=== PATIENT | female | born 1980 | race Caucasian/White ===

== ENCOUNTER → 2020-09-24 11:23 | Outpatient (CLI) | payer OTHER, SELFPAY ==
--- NOTE | ~2020-09-24 | MM_ITS ---
EXAMINATION: MM scrn pedro implant BI w jing HISTORY: Screening mammogram TECHNIQUE: Craniocaudal and mediolateral oblique 3-D tomosynthesis images with implant displacement a nd synthetic 2-D images were generated. Craniocaudal and mediolateral oblique views of the breasts wi thout implant displacement were obtained using full field digital mammography. CAD analysis was submi tted and interpreted. COMPARISON: No prior mammogram is available for comparison at this institution. BREAST PARENCHYMAL COMPOSITION: The breasts are heterogeneously dense, which may obscure small masses . FINDINGS: There are bilateral subpectoral saline implants. There is no evidence of suspicious mass, c alcification, or architectural distortion to suggest malignancy in either breast. There has been no s uspicious interval change. IMPRESSION: 1. No mammographic evidence of malignancy. 2. Recommend routine screening mammography in one year. BI-RADS Category 1: Negative Reviewed, dictated and finalized at location A. NSION PROFESSOR
== END ==
PROVIDERS: Visit Provider Obstetrics & Gynecology
DX: Z12.31 Encounter for screening mammogram for malignant neoplasm of breast (principal)
CPT/HCPCS: 77063; 77067

== ENCOUNTER → 2021-09-26 10:24 | Outpatient (CLI) | payer OTHER, SELFPAY ==
--- NOTE | ~2021-09-26 | MM_ITS ---
EXAMINATION: MM scrn pedro implant BI w jing HISTORY: Screening mammogram TECHNIQUE: Craniocaudal and mediolateral oblique 3-D tomosynthesis images with implant displacement a nd synthetic 2-D images were generated. Craniocaudal and mediolateral oblique views of the breasts wi thout implant displacement were obtained using full field digital mammography. CAD analysis was submi tted and interpreted. COMPARISON: 09/24/2020 BREAST PARENCHYMAL COMPOSITION: The breasts are heterogeneously dense, which may obscure small masses . FINDINGS: There is no evidence of suspicious mass, calcification, or architectural distortion to sugg est malignancy in either breast. There has been no suspicious interval change. IMPRESSION: 1. No mammographic evidence of malignancy. 2. Recommend routine screening mammography in one year. BI-RADS Category 1: Negative Reviewed, dictated and finalized at location A.
== END ==
PROVIDERS: PCP Family Medicine; Visit Provider Obstetrics & Gynecology
DX: Z12.31 Encounter for screening mammogram for malignant neoplasm of breast (principal)
CPT/HCPCS: 77063; 77067

== ENCOUNTER 2022-01-22 10:55 | Outpatient (CLI) | payer OTHER, SELFPAY ==
--- NOTE | 2022-01-22 11:14 | ECG_ITS ---
Measurements Intervals Baker Rate: 67 P: 30 DC: 136 QRS: 13 QRSD: 86 T: 34 QT: 392 QTc: 416 Interpretive Statements SINUS RHYTHM WITH SINUS ARRHYTHMIA NORMAL ECG NO PREVIOUS ECG AVAILABLE FOR COMPARISON Electronically Signed On 01-22-2022 15:25:38 FLAT SORTER PROCESSOR by Tye Dorado M.D.
[2022-01-22 11:25] LABS: Hemoglobin 13.5 g/dL (12.0-15.0)
== END 2022-01-22 10:56 | disposition home or self-care (01) ==
LOC: ANHSURGERY 10:58
PROVIDERS: Anesthesiology; PCP Family Medicine; Visit Provider Surgery Plastic and Reconstructive Surgery
DX: Z01.818 Encounter for other preprocedural examination (principal)
CPT/HCPCS: 36415; 85014; 85018; 93005

== ENCOUNTER → 2022-01-24 | Outpatient (CLI) | payer OTHER, SELFPAY ==
[2022-01-24 12:22] LABS: SARS-CoV-2 RNA PCR Negative
== END ==
PROVIDERS: PCP Family Medicine; Visit Provider Surgery Plastic and Reconstructive Surgery
DX: Z01.812 Encounter for preprocedural laboratory examination (principal); Z20.822 Contact with and (suspected) exposure to COVID-19
CPT/HCPCS: C9803; U0003; U0005

== ENCOUNTER 2022-01-27 00:06 | Day surgery (SDC) | payer OTHER, SELFPAY ==
[2022-01-21 09:43] VITALS: BMI 31.3
--- NOTE | 2022-01-21 09:54 | PC.NURSE ---
Report to the Outpatient Waiting Room, entrance under the green pavilion located off [facility], at time 6:30 on date 01/27/22. OR Time: 8:30. - You and your visitor will be asked a series of questions to screen for COVID 19 for your protection. - A mask is required within the hospital. One visitor will be allowed to accompany the patient into the hospital. Patients visitor will be instructed to remain with patient at all times or leave the building. We will allow the visitor to come back to the postoperative area when patient is ready. Preoperative COVID Testing Requirements: COVID TEST 01/24 AT 9:30 No COVID Test needed if: (proof is required; if not received patient will have Rapid Test prior to entry) - Patient has received COVID Vaccine at least 14 days prior to procedure date or - Patient has positive COVID test result within last 90 days of surgery date. COVID Test needed if above criteria is not met If not COVID vaccinated a COVID test must be conducted within 72 hours of surgery and patient is asked to isolate self from time of testing until procedure. You will go to the [facility] for your COVID testing. The [facility] site is located at the corner of [address] [facility]. You will only be called if COVID results are positive and your surgeon may reschedule your elective surgery date. Patients may have clear liquids (water, carbonated beverages, clear teas, apple juice) until 3 hours prior to surgery (5:30) with a maximum of 20 ounces. - No food from midnight until time of surgery Take the following medications with a SIP of water the morning of surgery: NONE Medications to discontinue per physician: N/A Date to take last dose: N/A Please no make-up, nail indonesian, hairspray, perfume, deodorant, or body powder the day of surgery. No jewelry (including any body piercings) or valuables the day of surgery, leave them at home. Please take a shower or bath the night before, or the morning of, surgery with an antibacterial soap. Wear comfortable, loose fitting clothing. - Jewelry must be removed prior to entering the operating room. Rings and piercings that are not removed may be cut off. - The hospital will not accept responsibility for valuables. - Please leave all valuables, including medications, at home the day of surgery. If you are going home after surgery, a licensed party bus driver must drive you home. - NO public transportation without another adult. - We recommend that an adult stay with you for 24 hours following discharge. - We also recommend that you do not drive, make important decision, drink alcoholic beverages, or take any drugs that were not prescribed by your health care provider for at least 24 hours after your discharge time. Follow any additional instructions given to you from your surgeon. Telephone instructions given to ILSA QUIÑONEZ and asked if any additional questions and then verbalized understanding. Patient advised to call surgeon office or pre surgery nurse liaison [phone] if any additional questions.
--- NOTE | 2022-01-26 13:53 | WPDANESEPPF ---
Anes - Initial Pre Proc Eval Procedure: Operation Date: 01/27/22 08:30 Proposed Procedures p Bilateral Breast Implant Exchange Saline To Silicone - Ruddy De Anda MD s Abdominoplasty, Liposuction Abdominal And Flank Areas - Ruddy De Anda MD Date/Time: 01/26/22 13:53 Surgeon: Ruddy De Anda MD Pre Op Diagnosis: Hx of Breast Aug, Abdomen Skin Laxity Patient Data Age: 41 Gender: F Height: 1.7 m Weight: 90.72 kg Allergies Allergy/AdvReac Type Severity Reaction Status Date / Time morphine Allergy Unknown Swelling Verified 01/27/22 06:42 of Lip/Tongue/Throat Home Medications Medication Instructions Recorded Confirmed Type carisoprodol 350 mg tablet 350 mg PO TID PRN #21 tablet 01/12/22 01/21/22 Rx docusate sodium 100 mg capsule 100 mg PO DAILY #14 cap 01/12/22 01/21/22 Rx ondansetron HCl 4 mg tablet 4 mg PO Q8H #21 tablet 01/12/22 01/21/22 Rx oxycodone-acetaminophen 5 mg-325 1 tablet PO Q6H PRN #30 tablet 01/12/22 01/21/22 Rx mg tablet Patient hx anesthesia problems: none Family hx anesthesia problems: none Results Review: All pre-operative results and documents have been reviewed as part of the pre-operative evaluation. [facility] Past Medical History Medical History (Updated 01/26/22 @ 13:53 by Adin Elliott MD) Obesity PONV (postoperative nausea and vomiting) Surgical History Surgical History History of repair of ACL Hx of section Hx of cholecystectomy Hx of hernia repair Hx of hysterectomy Family History Family History Grandparent Hypertension Family history of coronary artery disease Diabetes mellitus DVT (deep venous thrombosis) Other Family history of malignant neoplasm of cervix Social History Social History Smoking status: Unknown if ever smoked Alcohol intake: current Drinks per week: 4 Substance use: never Substance use type: does not use Living arrangements: with family Spiritual care concerns: No Anes - Eval Final PreProcedure Day of Procedure 01/26/22 13:53 Patient weight: obese Heart: regular rate and rhythm Lungs: clear to auscultation and normal air movement Airway: Mallampati scale class II Neurological: alert and oriented Last oral intake: >/= 8 hours ASA classification: II Emergent: no Anesthetic plan: proceed Anesthesia type and monitoring: general LMA Results Review: All pre-operative results and documents have been reviewed as part of the pre-operative evaluation. Informed Consent: The patient's anesthetic plan and its attendant risks and benefits were discussed with the patient/family/POA. Questions were solicited and answers provided to the satisfaction of the patient/family/POA.
[2022-01-27] VITALS (10 sets, daily range): BP systolic 104–131; BP diastolic 66–92; PULSE 71–94; RESP 12–19; TEMP 36–36.6; O2SAT 94–100; BMI 32.3
[2022-01-27] MEDS: SCOPOLAMINE 1.5 MG PATCH TRANSDERM (07:02)
--- NOTE | 2022-01-27 07:05 | WPDHPUPDATE1 ---
History and Physical Update Update Date/Time: 01/27/22 07:05 History and Physical has been reviewed, including an updated exam of the patient. There are NO changes in the patient's condition. Risks, benefits, and alternatives have been discussed and questions answered. Patient agrees to proceed with procedure.
[2022-01-27] MEDS: LACTATED RINGERS 1,000 ML 30 ML IV CONT ×2 (07:24→13:24)
--- NOTE | 2022-01-27 07:24 | SUR.PREOP ---
0710; RN IN ROOM WHILE DR MCGOWAN MARKING PT. SPOUSE IN ROOM ALSO
[2022-01-27 07:28] LABS: Urine Cotinine NEGATIVE
[2022-01-27] MEDS: LACTATED RINGERS IRRIG 1,000 ML, LIDOCAINE HCL 1% LOCAL INJ 50 ML, EPINEPHrine HCL INJ ... INFILTRATE (08:30)
[2022-01-27] MEDS: ceFAZolin 2 GM/D5W 50 ML 2 GM/50 ML BAG IVPB (08:30)
[2022-01-27] MEDS: BUPIVACAINE/EPINEPHRINE 0.25% 10 ML VIAL 60 ML INFILTRATE (08:30)
[2022-01-27] MEDS: TRANEXAMIC ACID 1,000MG/ISO100 1,000 MG/100 ML BAG 200 MG IVPB (08:40)
--- NOTE | 2022-01-27 12:58 | W.PM.PROC2 ---
Procedure Note - Detailed Date of Procedure 01/27/22 Pre-op Diagnosis Hx of Breast Aug, Abdomen Skin Laxity Post-op Diagnosis Same Procedure Performed 1. Bilateral breast implant exchange. 2. Progressive tension abdominoplasty with suction lipectomy Surgeon Ruddy De Anda MD Anesthesia General Findings Previous implants: Saline, smooth, 500cc est fill volume (based on volume removed) 570-590cc. Replacement implants: Bilateral Natmelvin SoftTouch implants 605cc Right: REF# [id number] SN [id number] Left: REF# [id number] Tissue removed: 2,375 cc Lipoaspirate: 2,500 cc Description of Procedure They are here today for the above. Previously and again today the risks, benefits, alternatives were discussed in extensive detail. I wanted them to be very realistic about the risks involved as well as expectations. We discussed aftercare and what to monitor for. She would like to change to IMF incision. I was very upfront about the risks of wound breakdown leading to loss of skin, open wounds, and need for additional procedures with permanent abdominal deformity. We discussed DVT/PE risks and management. Made sure answered all of their questions to their satisfaction today and consent was obtained. They were marked in the preoperative holding area with their verification. The patient was taken to the operating room placed supine on the operating table. Anesthesia was provided by anesthesiology. A Hernandez catheter was started. They were prepped and draped in a standard sterile fashion in a 360 degree prep. A surgical time-out was taken. Breast 1% lidocaine and 0.25% Marcaine with epinephrine was used to provide a field block. A 15 blade was used to make an incision along the IMF. Dissection was continued down until the implants were identified. These were saline smooth implants. Sizes as above. I used 18 gauge needle on suction and completed suction of each of the implants for the estimates as above. These were overfilled implants. Implants removed. Irrigated with 3 L of saline solution on TUR tubing. She had some lateral migration and I completed popcorn capsulorrhaphy laterally. I then copiously irrigated with triple antibiotic Betadine solution. During the procedure we had Tegaderm nipple Gonzalez in place. A steak Adams funnel and the implant was introduced into the pocket. This was closed using 2-0 Vicryl followed by 3-0 Monocryl in a running subcuticular 4-0 Monocryl and finally tissue glue. Abdomen A thorough abdominal examination was completed. Stab incisions were made and tumescent solution infiltrated. Suction lipectomy was completed with a 5mm basket cannula based on S.A.F.E. technique. During the procedure we did turn the patient in the lateral decubitus position to optimize contour. This was based on preoperative planning, intraoperative observations and rolling pinch which were in full agreement. I placed the patient in a flexed position to verify the upper and lower markings would reach. I then placed supine. A 10 blade was used to make the upper incision. I continued dissection down to the level of fascia. Elevated just what was necessary for repair of the diastasis. I then again flexed the bed to verify the upper skin flap would reach the lower markings without tension. Once verified I placed her supine once again and a 10 blade used to make the lower incision. I elevated up to level the umbilicus and left the umbilicus intact on a well-vascularized stalk. The intervening tissue was removed. A 2 mm blunt cannula with 0.5% bupivicaine was injected deep to the fascia bilaterally. I plicated the diastasis recti using 0 PDO stratafix barbed suture. This was in 2 separate layers using 2 separate sutures as well. I repaired around the umbilicus leaving plenty of room for well-vascularized stalk of the umbilicus with 2-0 PDS. I also repaired lateral to the rectus using two layers of 0 PDO strata
[2022-01-27] MEDS: ONDANSETRON INJ 4 MG/2 ML VIAL IV PUSH ×2 (13:42→15:06)
[2022-01-27] MEDS: HALOPERIDOL LACTATE 5 MG/ML VIAL 1 MG IV PUSH (13:55)
[2022-01-27] MEDS: diphenhydrAMINE HCl INJ 50 MG/ML VIAL 25 MG IV PUSH (14:25)
[2022-01-27] MEDS: LACTATED RINGERS 1,000 ML 125 ML IV CONT ×2 (15:06→22:52)
--- NOTE | 2022-01-27 15:19 | OBPPTRN ---
1447 Patient transferred to post room #280 via bed. Support person present. Oriented to unit, room, information board, rooming in, admission packet and security measures. Patient verbalizes understanding.
[2022-01-27] MEDS: carisoprodoL (*CRX) 350 MG TABLET PO (18:34)
[2022-01-27] MEDS: ENOXAPARIN 40 MG/0.4 ML SYRINGE SUB-Q (20:58)
[2022-01-27] MEDS: DOCUSATE SODIUM 100 MG CAPSULE PO (20:59)
[2022-01-27] MEDS: oxyCODONE/ACETAMINOPHEN (*CRX) 5-325 MG TABLET PO (21:00)
[2022-01-28] MEDS: carisoprodoL (*CRX) 350 MG TABLET PO ×3 (00:36→11:26)
--- NOTE | 2022-01-28 01:50 | PC.NURSE ---
At 1920, Provided patient an incentive spirometer. Demonstrated how to use the IS. Patient verbalized understanding and return demonstrated how to use the IS properly.
[2022-01-28] MEDS: oxyCODONE/ACETAMINOPHEN (*CRX) 5-325 MG TABLET PO ×3 (03:32→11:28)
[2022-01-28 04:00] VITALS: BP 129/78; PULSE 89; RESP 18; TEMP 36.9; O2SAT 96
--- NOTE | 2022-01-28 06:19 | WPDPN ---
Progress Note: A&P Assessment and Plan (1) Localized adiposity: Code(s): E65 - Localized adiposity Status: Acute Assessment and Plan: Doing very well after bilateral breast implant exchange, progressive tension abdominoplasty, suction lipectomy of abdomen / flank. Will discharge home. I will see her back. Today we had a lengthy discussion about the care. What monitor for. Activity limitations. This was a lengthy open-ended conversation making sure she was well informed. We discussed medical emergencies and went to dial 911/ proceed to the emergency room. Splint she can call with all other questions at any time. We will see her back. (2) Skin laxity: Code(s): L57.4 - Cutis laxa senilis Status: Acute (3) Hx of breast augmentation: Code(s): Z98.82 - Breast implant status Status: Acute Time Spent With Patient Time with patient: 15 - 25 minutes Subjective Date/time seen: 01/28/22 06:00 Postoperatively she says she has done very well. She has ambulated tolerating diet. Pain is controlled. No shortness of breath. No chest pain. No calf tenderness. No complaints. Review of Systems Review of Systems: All systems reviewed & are unremarkable except as noted in HPI and below Exam Narrative: Alert and oriented no obvious distress Respiratory labor Bilateral breasts are soft. No signs of infection. No hematoma. No seroma. Healing well. Abdomen soft. No signs of infection. No hematoma. No seroma. Good color and capillary refill. No calf tenderness. Negative Homans. Objective Data Vital Signs Vital Signs: Vital Signs - 24 hr 01/27/22 06:54 01/27/22 13:24 01/27/22 13:30 Temperature 36.5 C 36.0 C L Pulse Rate 75 81 80 Respiratory Rate 16 12 12 Blood Pressure 131/92 H 121/81 120/84 Pulse Oximetry 100 99 100 01/27/22 13:45 01/27/22 14:00 01/27/22 14:15 Temperature Pulse Rate 81 74 71 Respiratory Rate 19 14 12 Blood Pressure 119/86 115/72 110/71 Pulse Oximetry 98 97 94 01/27/22 14:30 01/27/22 15:00 01/27/22 20:20 Temperature 36.2 C L Pulse Rate 78 78 Respiratory Rate 12 16 Blood Pressure 110/77 104/71 109/66 Pulse Oximetry 94 99 01/27/22 22:57 01/28/22 04:00 Temperature 36.6 C 36.9 C Pulse Rate 94 89 Respiratory Rate 18 18 Blood Pressure 130/74 129/78 Pulse Oximetry 96 96 Intake/Output Intake/Output: Intake & Output 01/25/22 01/26/22 01/27/22 01/28/22 23:59 23:59 23:59 23:59 Intake Total 3035 900 Output Total 600 800 Balance 2435 100 Meds/Results Medications: Active Medications Generic Name Dose Route Start Last Admin Trade Name Freq PRN Reason Stop Dose Admin Carisoprodol 350 mg 01/27/22 18:00 01/28/22 00:36 Carisoprodol (*Crx) 350 Mg Tablet PO 350 mg Q6HR WALLACE Administration Diazepam 5 mg 01/27/22 13:14 Diazepam (*Crx) 5 Mg Tablet PO TID PRN Anxiety Docusate Sodium 100 mg 01/27/22 21:00 01/27/22 20:59 Docusate Sodium 100 Mg Capsule PO 100 mg Q12HR WALLACE Administration Enoxaparin Sodium 40 mg 01/27/22 20:00 01/27/22 20:58 Enoxaparin 40 Mg/0.4 Ml Syringe SUB-Q 40 mg Q24H WALLACE Administration Hydromorphone HCl 0.5 mg 01/27/22 13:14 Hydromorphone Hcl Inj (*Crx) 1 Mg/Ml Syr IV PUSH Q3H PRN Pain Rated 7-10 Lactated Ringer's 1,000 mls @ 125 mls/hr 01/27/22 13:15 01/27/22 22:52 Lr - Lactated Ringers Iv IV CONT 125 mls/hr .Q8H WALLACE Administration Ondansetron HCl 4 mg 01/27/22 13:14 01/27/22 15:06 Ondansetron Inj 4 Mg/2 Ml Vial IV PUSH 4 mg Q6H PRN Administration Nausea Oxycodone/Acetaminophen 1 - 2 tablet 01/27/22 13:14 01/28/22 03:32 Oxycodone/Acetaminophen (*Crx) 5-325 Mg Tablet PO 1 tablet Q6H PRN Administration Pain Labs Labs: Laboratory Results - last 24 hr 01/27/22 06:47 Cotinine Negative
--- NOTE | 2022-01-28 06:22 | PM.DS ---
DS: Admitting Diagnosis Discharge Date 01/28/2022 Admitting Diagnosis skin laxity, localized adiposity, history of breast augmentation. DS: Discharge Diagnosis Discharge Diagnosis (1) Localized adiposity: Code(s): E65 - Localized adiposity Status: Acute (2) Skin laxity: Code(s): L57.4 - Cutis laxa senilis Status: Acute (3) Hx of breast augmentation: Code(s): Z98.82 - Breast implant status Status: Acute DS: Summary Hospital Course Hospital Course: She underwent bilateral breast implant exchange, progressive tension abdominoplasty with suction lipectomy of abdomen and flank. She has done very well postoperatively. Ambulating. Pain controlled. Is tolerating diet. Will plan for discharge home. I will see her back. Time Spent with Patient Time attestation: Total time spent providing and/or coordinating discharge services: Exam Narrative: Alert and oriented no obvious distress Respiratory labor Bilateral breasts are soft. No signs of infection. No hematoma. No seroma. Healing well. Abdomen soft. No signs of infection. No hematoma. No seroma. Good color and capillary refill. No calf tenderness. Negative Homans. DS: Data Data Completed and Pending Labs on day of discharge: Labs from last 24 hours 01/27/22 06:47 Cotinine Negative Discharge Plan Discharge Patient Disposition: Home, Self-Care Discharge Instructions: POST OPERATIVE DISCHARGE INSTRUCTIONS RUDDY DE ANDA M.D. [facility] [address] [place] [address] [address] for 24 hours after anesthesia and while you are taking pain medication. Take all prescribed medication as directed Diet as tolerated. No lifting or activity that raises blood pressure for 48 hours. Regular walking / ambulation. No showering until directed to. Once you shower do not take pain medication before showering as the combination of medication and heat may cause you to feel dizzy or pass out. No pools or tubs for 2 weeks. Call with any questions or concerns. Slowly stand up straight over the week as tolerated. No straining or lifting more than 20 pounds. Dressing Care: May shower. Continue abdominal binder 23 hours per day. If you have any questions or concerns, please call the office . If it is after hours you will be directed to the operation supervisor exchange. Shortness of breath, chest pain, or other medical emergency dial 911 / proceed to the Emergency Room. Remove the Scopolamine patch that was placed behind your ear in 72 hours or less. Wash your hands after touching. Stand Alone Forms: General Discharge Instructions Follow-up/Referrals: Ruddy De Anda MD [Physician] - 1 Week Discharge Medications: Continued docusate sodium [Colace] 100 mg capsule 100 mg PO DAILY Qty: 14 RF: 0 ondansetron HCl 4 mg tablet 4 mg PO Q8H Qty: 21 RF: 0 carisoprodol [Soma] 350 mg tablet 350 mg PO TID PRN (Reason: muscle pain) Qty: 21 RF: 0 oxycodone-acetaminophen [Percocet] 5-325 mg tablet 1 tablet PO Q6H PRN (Reason: pain) Qty: 30 RF: 0 Other Ambulatory Orders: SARS-CoV-2 RNA, Qual RT-PCR (Routine) Timeframe: 1 Month Facility: [facility] - Location: [facility] Ordered By: Ruddy De Anda
[2022-01-28] MEDS: DOCUSATE SODIUM 100 MG CAPSULE PO (07:10)
[2022-01-28] MEDS: diazePAM (*CRX) 5 MG TABLET PO (07:12)
[2022-01-28 08:00] VITALS: BP 112/65; PULSE 102; RESP 18; TEMP 37.4
--- NOTE | 2022-01-28 09:52 | WPDANESPN ---
Anes - Prog Note Post-Op Date/Time: 01/28/22 09:52 Cardiovascular status: normal Respiratory status: normal Airway patency: baseline Mental status: baseline Post-Op hydration status: normal Vital Signs: Last Vital Signs Temp 37.4 C 01/28/22 08:00 Pulse 102 H 01/28/22 08:00 Resp 18 01/28/22 08:00 BP 112/65 01/28/22 08:00 Pulse Ox 96 01/28/22 04:00 Pain Score (VAS): 0 I/O: Intake & Output 01/27/22 01/28/22 01/28/22 23:59 07:59 15:59 Intake Total 2135 900 1300 Output Total 591 328 5091 Balance 1535 100 150 Post-procedural complaints: none Patient Feedback: Patient satisfied with anesthetic care.
--- NOTE | 2022-01-28 12:13 | PC.NURSE ---
Self care discharge instructions given including when to follow up with Dr. De Anda. Pt. verbalized understanding. No questions or concerns voiced. at bedside.
== END 2022-01-28 13:55 | disposition home or self-care (01) ==
LOC: ANHSURGERY 13:14 → ANHOB2 14:37
PROVIDERS: PCP Family Medicine; Visit Provider Surgery Plastic and Reconstructive Surgery
PROC: (CPT 19370; principal; 2022-01-27 08:30)
PROC: (CPT 19370; 2022-01-27 08:30)
DX: Z41.1 Encounter for cosmetic surgery (principal); L57.4 Cutis laxa senilis; E65 Localized adiposity; E66.9 Obesity, unspecified; Z68.32 Body mass index [BMI] 32.0-32.9, adult; Z82.49 Family history of ischemic heart disease and other diseases of the circulatory system
CPT/HCPCS: 19370; 19325; 15877; 15830; 15847; 80307; 99199; A9270; J0171; J0690; J1100; J1170; J1200; J1580; J1630; J1650; J2250; J2405; J2704; J3010; J7120

== ENCOUNTER → 2022-07-06 11:15 | Outpatient (CLI) | payer OTHER, SELFPAY ==
--- NOTE | ~2022-07-06 | CT_ITS ---
EXAMINATION: CT abdomen pelvis wo con DATE: 07/06/2022 11:31 INDICATION: Epigastric abdominal bulge TECHNIQUE: Computed tomography (CT) of the abdomen and pelvis was performed without intravenous contr ast. The dose-length product (DLP) was 901.83 mGy-cm. Automated exposure control and iterative recons truction technique were employed. COMPARISON: None FINDINGS: The lung bases are clear. The heart size is normal. There is a small sliding hiatal hernia. The gallbladder is surgically absent. The liver, spleen, pancreas, and adrenal glands are normal. Th e kidneys are unremarkable. No pathologically enlarged abdominal or pelvic lymph nodes are identified . There is no free intraperitoneal gas or evidence of bowel obstruction. The appendix is normal. [place] rhys diverticulosis is present without evidence of diverticulitis. No definite ventral hernia is ident ified. There is mild lumbar spondylosis. Changes of hysterectomy are noted. IMPRESSION: 1. No definite ventral hernia identified. Reviewed, dictated and finalized at location A.
== END ==
PROVIDERS: PCP Family Medicine; Visit Provider Surgery Plastic and Reconstructive Surgery
DX: R19.00 Intra-abdominal and pelvic swelling, mass and lump, unspecified site (principal)
CPT/HCPCS: 74176

== ENCOUNTER 2024-08-08 12:32 | Outpatient (CLI) | payer OTHER, SELFPAY ==
--- NOTE | ~2024-08-08 | MM_ITS ---
EXAMINATION: MM scrn pedro implant BI w jing HISTORY: Screening mammogram TECHNIQUE: Craniocaudal and mediolateral oblique 3-D tomosynthesis images with implant displacement a nd synthetic 2-D images were generated. Craniocaudal and mediolateral oblique views of the breasts wi thout implant displacement were obtained using full field digital mammography. CAD analysis was submi tted and interpreted. COMPARISON: 09/26/2021, 09/24/2020 BREAST PARENCHYMAL COMPOSITION: The breasts are extremely dense, which lowers the sensitivity of mamm ography. FINDINGS: There is no evidence of suspicious mass, calcification, or architectural distortion to sugg est malignancy in either breast. There has been no suspicious interval change. IMPRESSION: No mammographic evidence of malignancy. Recommend routine screening mammography in one year. BI-RADS Category 1: Negative Reviewed, dictated and finalized at location .
== END 2024-08-08 12:33 | disposition home or self-care (01) ==
LOC: MICIMG 12:33
PROVIDERS: PCP Obstetrics & Gynecology; Visit Provider Obstetrics & Gynecology
DX: Z12.31 Encounter for screening mammogram for malignant neoplasm of breast (principal)
CPT/HCPCS: 77063; 77067